=== PATIENT | female | born 1975 | race Caucasian/White ===

== ENCOUNTER 2020-08-24 05:53 | Emergency (ER) | payer MEDICAID ==
[~2020-08-24] VITALS: Ht 160 cm; Wt 55.0 kg
[2020-08-24 06:38] VITALS: BP 140/80
== END 2020-08-24 08:57 | disposition home or self-care (01) ==
LOC: ER 05:53
DX: F15.151 Other stimulant abuse with stimulant-induced psychotic disorder with hallucinations (principal); R03.0 Elevated blood-pressure reading, without diagnosis of hypertension
CPT/HCPCS: 93005; 99283

== ENCOUNTER 2021-11-30 09:18 | Emergency (ER) | payer MEDICAID ==
[~2021-11-30] VITALS: Ht 165.1 cm; Wt 73.0 kg
[2021-11-30 09:36] VITALS: BP 114/88
[2021-11-30] MEDS ORDERED: ACETAMINOPHEN 325MG TABLET PO STA (10:14)
[2021-11-30] MEDS ORDERED: METOCLOPRAMIDE HCL 10MG/2ML VIAL IV STA (10:45)
[2021-11-30 11:16] LABS: BASOPHILS % 0.4 % (0.0-2.0); EOSINOPHILS % 0.8 % (0.0-5.0); HEMATOCRIT. 39.5 % (36.0-48.0); HEMOGLOBIN. 13.2 g/dL (12.0-16.0); LYMPHOCYTES % 23.1 % (20.0-50.0); MEAN CORPUSCULAR HEMOGLOBIN 26.6 pg (28.0-32.0); MEAN CORPUSCULAR VOLUME 79.4 fL (81.0-99.0); MEAN PLATELET VOLUME 7.7 fl (7.4-10.4); MONOCYTES % 5.4 % (2.0-8.0); NEUTROPHILS % 70.3 % (40.0-76.0); PLATELET 307 x1000/uL (130-400); RED BLOOD CELL COUNT 4.97 mill/uL (4.2-5.4); RED CELL DISTRIBUTION WIDTH 15.8 % (11.6-14.6)
[2021-11-30 11:26] LABS: CHLORIDE 110 mEq/L (98-107)
[2021-11-30 11:33] LABS: HCG SCREEN NEGATIVE
== END 2021-11-30 12:03 | disposition left against medical advice (07) ==
LOC: ER 09:18
DX: R10.84 Generalized abdominal pain (principal); Z53.21 Procedure and treatment not carried out due to patient leaving prior to being seen by health care provider; F15.10 Other stimulant abuse, uncomplicated; Z86.39 Personal history of other endocrine, nutritional and metabolic disease
CPT/HCPCS: 36415; 80053; 83690; 84702; 84703; 85025; 96374; 99283; J2765